=== PATIENT | female | born 1995 | race Caucasian/White ===

== ENCOUNTER 2016-12-06 16:54 | Emergency (ER) | payer OTHER ==
[~2016-12-06] VITALS: Ht 170.2 cm; Wt 104.3 kg
[2016-12-06 17:27] VITALS: BP 137/76
--- NOTE | 2016-12-06 17:38 | NUR ---
Patient ambulated to bed 6. SOCKET PULLER evaluating patient at bedside.
--- NOTE | 2016-12-06 18:12 | NUR ---
Dr. Kiser evaluating patient at bedside.
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
[2016-12-06 19:05] VITALS: BP 117/75
--- NOTE | 2016-12-06 19:05 | NUR ---
Chart checked and completed. The patient's care was reviewed and supervised by Shane Lua RN.
--- NOTE | 2016-12-06 19:05 | NUR ---
Patient discharged with v/s stable. Written and verbal after care instructions given and explained. Patient alert, oriented and verbalized understanding of instructions. Ambulatory with steady gait. All questions addressed prior to discharge. ID band removed. Patient advised to follow up with PMD. Rx of MOTRIN,NORCO given. Patient educated on indication of medication including possible reaction and side effects. Opportunity to ask questions provided and answered.
== END 2016-12-06 19:05 | disposition home or self-care (01) ==
LOC: MED 16:54
DX: S13.4XXA Sprain of ligaments of cervical spine, initial encounter (principal); V49.40XA Driver injured in collision with unspecified motor vehicles in traffic accident, initial encounter; Y93.89 Activity, other specified; Y92.89 Other specified places as the place of occurrence of the external cause; Y99.8 Other external cause status
CPT/HCPCS: 99283

== ENCOUNTER 2017-09-21 15:43 | Emergency (ER) | payer MEDICAID, OTHER ==
[~2017-09-21] VITALS: Ht 170.2 cm; Wt 101.6 kg
--- NOTE | 2017-09-21 15:52 | NUR ---
PT BIB WHEELCHAIR TO [facility]
[2017-09-21 15:53] VITALS: BP 102/86
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
--- NOTE | 2017-09-21 17:18 | NUR ---
CONTINUE TO WAIT FOR [place] [facility]
[2017-09-21 17:42] VITALS: BP 134/84
== END 2017-09-21 17:41 | disposition home or self-care (01) ==
LOC: MED 15:43
DX: S83.91XA Sprain of unspecified site of right knee, initial encounter (principal); W01.0XXA Fall on same level from slipping, tripping and stumbling without subsequent striking against object, initial encounter; Y93.89 Activity, other specified; Y92.89 Other specified places as the place of occurrence of the external cause; Y99.8 Other external cause status
CPT/HCPCS: 73562; 99284

== ENCOUNTER 2017-09-30 18:43 | Emergency (ER) | payer MEDICAID ==
[~2017-09-30] VITALS: Ht 170.2 cm; Wt 99.8 kg
[2017-09-30 18:55] VITALS: BP 152/74
--- NOTE | 2017-09-30 18:59 | NUR ---
PT AMBULATES TO CHAIR C.
--- NOTE | 2017-09-30 19:01 | NUR ---
RT KNEE PAIN, SPRAINED ON FRIDAY, BUT DIDNT USE CRUTCHES PROPERLY. PAIN WORSE NOW. "IT BUCKLED" +BRUISE. DENIES N/V/D; SKIN IS PINK/WARM/DRY; AAOX4 WITH EVEN AND STEADY GAIT; LUNGS CLEAR BL; HR EVEN AND REGULAR; PT DENIES ANY FEVER, CP, SOB, OR COUGH AT THIS TIME; PATIENT STATES PAIN OF 1/10 AT THIS TIME; VSS. ER MD MADE AWARE OF PT STATUS.
[2017-09-30 20:08] VITALS: BP 142/70
--- NOTE | 2017-09-30 20:10 | NUR ---
Patient discharged with v/s stable. Written and verbal after care instructions given and explained. Patient verbalized understanding. Ambulatory with CRUTCHES . All questions addressed prior to discharge. Advised to follow up with PMD.
--- NOTE | 2017-09-30 20:10 | NUR ---
PT REFUSED IMMOBILIZER, MD AWARE.
== END 2017-09-30 20:10 | disposition home or self-care (01) ==
LOC: MED 18:43
DX: S83.91XA Sprain of unspecified site of right knee, initial encounter (principal); X58.XXXA Exposure to other specified factors, initial encounter; Y93.89 Activity, other specified; Y92.89 Other specified places as the place of occurrence of the external cause; Y99.8 Other external cause status
CPT/HCPCS: 29505; 73562; 99284

== ENCOUNTER 2017-12-28 09:29 | Emergency (ER) | payer MEDICAID ==
[~2017-12-28] VITALS: Ht 167.6 cm; Wt 108.4 kg
[2017-12-28 09:42] VITALS: BP 116/74
--- NOTE | 2017-12-28 09:46 | NUR ---
PT AMBULATED TO ER BED 07
--- NOTE | 2017-12-28 10:26 | NUR ---
PATIENT CAME IN WITH COMPLAINT OF SWELLING AND ITCHING DUE TO BUG BITES Xs 2 days.. SHE HAD 2, ONE ON EACH ARM. ONE LARGE SIZE WITH SWELLING AND REDNESS. PATIENT DENIES PAIN BUT HAS ITCHING. SCRATCHING SEEMS TO MAKE THE BUG BITE ITCH AND SWELL MORE PER PT. NO KNOWN ALLERGIES AND NO MEDICAL HISTORY.
[2017-12-28 10:28] VITALS: BP 116/74
== END 2017-12-28 10:15 | disposition home or self-care (01) ==
LOC: MED 09:29
DX: S80.862A Insect bite (nonvenomous), left lower leg, initial encounter (principal); S80.861A Insect bite (nonvenomous), right lower leg, initial encounter; S40.861A Insect bite (nonvenomous) of right upper arm, initial encounter; L03.113 Cellulitis of right upper limb; W57.XXXA Bitten or stung by nonvenomous insect and other nonvenomous arthropods, initial encounter; Y93.89 Activity, other specified; Y99.8 Other external cause status; Y92.89 Other specified places as the place of occurrence of the external cause
CPT/HCPCS: 99283

== ENCOUNTER 2018-11-06 15:07 | Emergency (ER) | payer MEDICAID ==
[~2018-11-06] VITALS: Ht 170.2 cm; Wt 114.3 kg
[2018-11-06 15:11] VITALS: BP 143/100
--- NOTE | 2018-11-06 15:39 | NUR ---
22 YO/F BIB SELF WITH CHIEF C/O RIGHT UPPER DENTAL ABSCESS X FRIDAY. CURRENTLY ON ANTIBIOTICS PRESCRIBED BY DENTIST ON Fri11/04/18. +RT FACIAL SWELLING. DENIES FEVER/NAUSEA/VOMITING. DENIES PMH. NKDA.
[2018-11-06] MEDS ORDERED: LIDOCAINE VISCOUS 2% 20 ML UDC PO ONE (15:45)
[2018-11-06] MEDS ORDERED: LIDOCAINE OINTMENT 5% 35 GM TUBE TP ONE (15:45)
[2018-11-06 16:55] VITALS: BP 134/72
== END 2018-11-06 16:55 | disposition home or self-care (01) ==
LOC: MED 15:07
DX: K05.219 Aggressive periodontitis, localized, unspecified severity (principal)
CPT/HCPCS: 41800; 99283

== ENCOUNTER 2019-08-01 17:12 | Emergency (ER) | payer MEDICAID ==
[~2019-08-01] VITALS: Ht 170.2 cm; Wt 111.1 kg
[2019-08-01 17:25] VITALS: BP 129/76
--- NOTE | 2019-08-01 17:32 | NUR ---
PT TAKEN TO CHAIR C
--- NOTE | 2019-08-01 17:41 | NUR ---
Pt went to xray via wheelchair
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
[2019-08-01] MEDS ORDERED: ACETAMINOPHEN 325 MG TAB PO ONE (18:05)
--- NOTE | 2019-08-01 18:09 | NUR ---
PT PLACED IN ORTHO KNEE IMMOBILIZER ON RIGHT KNEE, IMMOBILIZER ADJUSTED TO PT KNEE SIZE, PT GIVEN CRUTCHES, CRUTCHES ADJUSTED FOR PT HEIGHT AND PROJECT SAFETY MANAGER, PT GIVEN 1 ON 1 INSTRUCTION ON HOW TO SAFTLY USE CRUTCHES FOR WALKING, SITTING, STANDING AND USING STAIRS. PT GAVE PROPER DEMENSTRATION ON HOW TO USE CRUTCHES, PT STATES THEY HAVE USED CRUTCHES BEFORE IN THE PAST AND FEELS SAFE USING THEM
[2019-08-01 18:24] VITALS: BP 129/76
--- NOTE | 2019-08-01 18:25 | NUR ---
Patient discharged with v/s stable. Written and verbal after care instructions given and explained. Patient alert, oriented and verbalized understanding of instructions. Ambulatory with steady gait. All questions addressed prior to discharge. ID band removed. Patient advised to follow up with PMD. Rx of Ibuprofen 600mg was given. Patient educated on indication of medication including possible reaction and side effects. Opportunity to ask questions provided and answered.
== END 2019-08-01 18:25 | disposition home or self-care (01) ==
LOC: MED 17:12
DX: S86.911A Strain of unspecified muscle(s) and tendon(s) at lower leg level, right leg, initial encounter (principal); W05.1XXA Fall from non-moving nonmotorized scooter, initial encounter; Y93.89 Activity, other specified; Y92.410 Unspecified street and highway as the place of occurrence of the external cause; Y99.8 Other external cause status
CPT/HCPCS: 29505; 73564; 99283

== ENCOUNTER 2019-08-05 19:24 | Emergency (ER) | payer MEDICAID ==
[~2019-08-05] VITALS: Ht 170.2 cm; Wt 111.1 kg
[2019-08-05 19:30] VITALS: BP 145/90
--- NOTE | 2019-08-05 19:30 | NUR ---
TO CHAIR A , AMBULATORY
--- NOTE | 2019-08-05 19:35 | NUR ---
pt came into er with c/o recheck for a spained knee on the right side. pt stated she has nop ain at this time . pt is alert and able to answers questions appropriately. pt is able to put weight baring to knee and has rom with mimal pain. ermd made aware of status. safety measures in place.
[2019-08-05 20:29] VITALS: BP 145/90
--- NOTE | 2019-08-05 20:30 | NUR ---
DPatient discharged with v/s stable. Written and verbal after care instructions given and explained. Patient verbalized understanding. Ambulatory with steady gait. All questions addressed prior to discharge. Advised to follow up with PMD.
== END 2019-08-05 20:30 | disposition home or self-care (01) ==
LOC: MED 19:24
DX: S86.811A Strain of other muscle(s) and tendon(s) at lower leg level, right leg, initial encounter (principal); X58.XXXA Exposure to other specified factors, initial encounter; Y93.89 Activity, other specified; Y92.89 Other specified places as the place of occurrence of the external cause; Y99.8 Other external cause status
CPT/HCPCS: 99281

== ENCOUNTER 2020-08-27 14:38 | Emergency (ER) | payer MEDICAID ==
[~2020-08-27] VITALS: Ht 170.2 cm; Wt 115.7 kg
[2020-08-27 14:43] VITALS: BP 148/52
[2020-08-27] MEDS ORDERED: BACITRACIN OINT 500 UNITS/GM PKT TP ONE (14:55)
[2020-08-27 15:20] VITALS: BP 148/52
== END 2020-08-27 15:26 | disposition home or self-care (01) ==
LOC: MED 14:38
DX: S00.03XA Contusion of scalp, initial encounter (principal); S40.812A Abrasion of left upper arm, initial encounter; S70.212A Abrasion, left hip, initial encounter; V87.8XXA Person injured in other specified noncollision transport accidents involving motor vehicle (traffic), initial encounter; Y93.89 Activity, other specified; Y92.89 Other specified places as the place of occurrence of the external cause; Y99.8 Other external cause status
CPT/HCPCS: 90471; 90715; 99283

== ENCOUNTER 2021-12-30 18:58 | Emergency (ER) | payer MEDICAID ==
[~2021-12-30] VITALS: Ht 170.2 cm; Wt 117.9 kg
[2021-12-30 19:15] VITALS: BP 145/59
--- NOTE | 2021-12-30 19:38 | NUR ---
XR at bedside
--- NOTE | 2021-12-30 20:26 | NUR ---
Dr. Martinez examining patient.
[2021-12-30 20:55] VITALS: BP 119/78
--- NOTE | 2021-12-30 20:55 | NUR ---
Patient discharged. VS WNL. Written and verbal after care instructions given and explained. Patient verbalized understanding. Ambulatory with steady gait. ID band removed. All questions addressed prior to discharge. Advised to follow up with PMD.
== END 2021-12-30 20:55 | disposition home or self-care (01) ==
LOC: MED 18:58
DX: M25.561 Pain in right knee (principal)
CPT/HCPCS: 73562; 99283

== ENCOUNTER 2022-05-12 10:02 | Emergency (ER) | payer MEDICAID ==
[~2022-05-12] VITALS: Ht 170.2 cm; Wt 125.2 kg
[2022-05-12 10:07] VITALS: BP 130/77
[2022-05-12] MEDS ORDERED: PROCHLORPERAZINE 10 MG/2 ML VIAL IM ONE (11:05)
[2022-05-12] MEDS ORDERED: KETOROLAC 30 MG/ML VIAL IM ONE (11:05)
--- NOTE | 2022-05-12 11:48 | NUR ---
26/F PRESENTS TO ED WITH C/O 10/10 PRESSURE LIKE HEADACHE, NAUSEA, DIZZINESS AND PHOTOPHOBIA X1 WEEK. PATIENT REPORTS HX OF MIGRAINES THAT IS USUALLY CONTROLLED WITH EXCEDRIN BUT STATES SYMPTOMS HAVE BEEN WORSENING AND SHE HAS NOT FOUND RELIEF. PATIENT DENIES RECENT INJURY OR TRAUMA, V/D, FEVERS OR CHILLS.
[2022-05-12] MEDS ORDERED: IBUP-2213 PO (12:17)
[2022-05-12 12:32] VITALS: BP 111/75
--- NOTE | 2022-05-12 12:32 | NUR ---
Patient discharged with v/s stable. Written and verbal after care instructions MIGRAINE HEADACHE given and explained. Patient alert, oriented and verbalized understanding of instructions. Ambulatory with steady gait. All questions addressed prior to discharge. ID band removed. Patient advised to follow up with PMD. Rx of IBUPROFEN given. Patient educated on indication of medication including possible reaction and side effects. Opportunity to ask questions provided and answered. PATIENT HAD FRIEND PICK HER UP TO DRIVE HER HOME
== END 2022-05-12 12:32 | disposition home or self-care (01) ==
LOC: MED 10:02
DX: G43.909 Migraine, unspecified, not intractable, without status migrainosus (principal)
CPT/HCPCS: 70450; 81025; 96372; 99284; J0780; J1885; Q0163